=== PATIENT | female | born 1965 | race Caucasian/White ===

== ENCOUNTER 2021-07-06 18:56 | Emergency (ER) | payer MEDICARE, MEDICAID, SELFPAY ==
--- NOTE | 2021-07-06 18:58 | ECG_ITS ---
[facility] ED Test Date: 2021-07-06 Pat Name: Soheila Holley Department: Room: Gender: Female Codifier: : 1965 Requested By: Santhosh Rubio Order Number: [id number] Jareth MD: Cecily Mercedes M.D. Measurements Intervals [place] Rate: 69 P: 154 NC: 183 QRS: 135 QRSD: 101 T: 162 QT: 387 QTc: 416 Interpretive Statements ECTOPIC ATRIAL RHYTHM POSSIBLE RIGHT VENTRICULAR HYPERTROPHY [SOME/ALL OF: PROMINENT R IN V1, LATE TRANSITION, RAD, YOHANA, SSS] NONSPECIFIC ST & T-WAVE ABNORMALITY Compared to ECG 07/06/2021 19:42:23 Ectopic atrial rhythm now present T-wave abnormality now present Sinus rhythm no longer present Electronically Signed On 07-07-2021 13:56:54 CDT by Cecily Mercedes M.D. [id number]
[2021-07-06 19:01] VITALS: BP 134/80; PULSE 74; RESP 18; TEMP 36.7; O2SAT 97; BMI 34.3
--- NOTE | 2021-07-06 19:07 | XRR_ITS ---
PROCEDURE INFORMATION: Exam: XR Chest Exam date and time: 07/06/2021 7:07 PM Age: 56 years old Clinical indication: Pain; Left-sided; Additional info: Cp TECHNIQUE: Imaging protocol: XR of the chest. Views: 1 view. COMPARISON: No relevant prior studies available. FINDINGS: Lungs: Question a left perihilar mass measuring 3 cm. No focal consolidation. Pleural spaces: Unremarkable. No pleural effusion. No pneumothorax. Heart/Mediastinum: Unremarkable. No cardiomegaly. Bones/joints: Visualized osseous structures are intact. XR/XR chest 1V portable [id number] IMPRESSION: Question a 3 cm left perihilar mass. Would recommend chest CT for further evaluation.
[2021-07-06 19:25] LABS: Basophils # 0.1 10^3/uL (0.0-0.1); Basophils % 1.4 %; Eosinophils # 0.2 10^3/uL (0.0-0.8); Eosinophils % 1.9 %; Hematocrit 44.8 % (37.0-47.0); Hemoglobin 14.9 g/dL (11.5-15.3); Lymphocytes # 3.8 10^3/uL (0.8-4.8); Lymphocytes % 44.5 %; Mean Corpuscular HGB Conc 33.3 g/dL (30.0-36.0); Mean Corpuscular Hemoglobin 31.1 pg (28.0-34.0); Mean Corpuscular Volume 93.5 fL (81-99); Mean Platelet Volume 9.2 fL (7.4-10.4); Monocytes # 0.5 10^3/uL (0.2-0.9); Neutrophils # 3.95 10^3/uL (1.8-7.7); Neutrophils % 45.7 %; Nucleated Red Blood Cells % 0 %; Platelet Count 322 10^3/cmm (130-400); Red Blood Count 4.79 10^6/uL (4.1-5.3); Red Cell Distribution Width 12.6 % (12.1-15.1); White Blood Count 8.6 10^3/uL (4.0-10.0)
--- NOTE | 2021-07-06 19:25 | W.ED.CHESTPA ---
HPI - Chest Pain General: Chief Complaint: Chest Pain Stated Complaint: CHEST PAIN Time Seen by Provider: 07/06/21 19:07 Source: patient and EMS Mode of arrival: EMS Limitations: no limitations History of Present Illness: HPI narrative: 56-year-old female who is here from local detention who started having chest pain 2 hours ago. States the pressure type pain in her chest that radiates to her back. States pain is currently a 7 out of 10. Denies any shortness of breath. States it does radiate to her back as well. She does have a history of back pain. Denies any worsening improving factors. She received aspirin in route. Associated symptoms: Deny abdominal pain, dyspnea, fever(s), nausea or vomiting Review of Systems Const: Denies: fever(s), chills, body aches or change in appetite Eyes: Denies: blurry vision or eye discomfort ENMT: Denies: throat pain or dental pain Card: Reports: chest pain Resp: Denies: dyspnea GI: Denies: abdominal pain, nausea, vomiting or diarrhea : Denies: dysuria Musc: Denies: neck pain or back pain Skin/Breast: Denies: rash Neuro: Denies: headache(s) Psych: Denies: depression Jono/Lymph: Denies: easy bruising All/Imm: Denies: urticaria Physical Exam Const: COMMON NORMALS: no acute distress, patient oriented x3 and healthy appearing HENMT: COMMON NORMALS: normocephalic and atraumatic HEAD & SCALP: normocephalic and atraumatic Eye: COMMON NORMALS: Equal, round and reactive pupils present and EOMs intact bilaterally PUPIL: Yes Equal, round and reactive pupils present Neck/C-Spine: COMMON NORMALS: full ROM and supple Chest: COMMONS NORMALS: normal inspection of the chest and normal palpation of entire chest wall Resp: COMMON NORMALS: normal respiratory effort, No retractions, No use of accessory muscles and clear to auscultation bilaterally AUSCULTATION: clear to auscultation bilaterally Cardio: COMMON NORMALS: regular rate, regular rhythm and No murmurs present (Cardio) RATE: regular rate RHYTHM: regular rhythm GI: COMMON NORMALS: Normal to inspection, nondistended, normoactive bowel sounds present, Soft to palpation, non-tender and no masses PALPATION: Yes Soft to palpation OTHER: Abdominal wall hernia that is reducible and not incarcerated Extremity: COMMON NORMALS: normal to inspection and full ROM Neuro: COMMON NORMALS: patient oriented x3, moves all extremities and no focal motor deficits Psych: COMMON NORMALS: mental status grossly normal, Normal thought process present and cooperative THOUGHT PROCESS: Normal thought process present Skin: COMMON NORMALS: no rashes or lesions noted and no wounds GENERAL SKIN EXAM: no rashes or lesions noted Course Vital Signs: Vital signs: Vital Signs Temperature 98.1 F 07/06/21 19:01 Pulse Rate 64 07/06/21 22:25 Respiratory Rate 16 07/06/21 22:25 Blood Pressure 134/80 07/06/21 19:01 Pulse Oximetry 97 07/06/21 22:25 MDM - Chest Pain MDM Narrative: Medical decision making narrative: Patient presents with chest pains atypical in nature. Patient's troponins here are negative. CT did show a lung mass I informed her of this we will get her follow-up with pulmonology. She is stable for discharge back to back to detention and return if worsening. Lab Data: Labs: Lab Results 07/06/21 07/06/21 07/06/21 Range/Units 19:18 19:18 19:18 WBC 8.6 (4.0-10.0) 10^3/ uL RBC 4.79 (4.1-5.3) 10^6/u L Hgb 14.9 (11.5-15.3) g/dL Hct 44.8 (37.0-47.0) % MCV 93.5 (81-99) fL MCH 31.1 (28.0-34.0) pg MCHC 33.3 (30.0-36.0) g/dL RDW 12.6 (12.1-15.1) % Plt Count 322 (130-400) 10^3/c mm MPV 9.2 (7.4-10.4) fL Neut % (Auto) 45.7 % Lymph % (Auto) 44.5 % [place] % (Auto) 6.0 % Eos % (Auto) 1.9 % Baso % (Auto) 1.4 % Neut # (Auto) 3.95 (1.8-7.7) 10^3/u L Lymph # (Auto) 3.8 (0.8-4.8) 10^3/u L [place] # (Auto) 0.5 (0.2-0.9) 10^3/u L Eos # (Auto) 0.2 (0.0-0.8) 10^3/u L Baso # (Auto) 0.1 (0.0-0.1) 10^3/u L Nucleated RBC % (a uto) 0 % Nucleated RBCs # 0.0 /100WBC D-Dimer (0-0.59) ug/mIFE U Sodium 138 (136-145) mmol/L Potassium 4.5 (3.5-5.1) mmol/L Chloride 105 (98-107) mmol/L Carbon Dioxide 23 (22-29) mmol/L Anion Gap 14.5 (5-19) BUN 13 (6-20) mg/dL Creatinine 0.5 (0.5-0.9) mg/dL GFR Calculation 128.6 (90-130) mL/min Glucose 100 (65-115) mg/dL Calculated Osmolal ity 286 (285-295) mOsm/k g Calcium 8.5 (8.5-10.5) mg/dL Total Bilirubin 0.2 (0.15-1.2) mg/dL AST 15 (0-32) U/L ALT 11 (0-33) U/L Alkaline Phosphata se 81 (35-105) IU/L Troponin T Baselin e 8 (0-10) ng/L Troponin T 120 Min tejon (0-10) ng/L Delta Troponin T (0-10) ABS# Total Protein 5.8 L (6.6-8.7) g/dL Albumin 3.7 (3.5-5.2) g/dL Globulin 2.1 (1.3-4.6) g/dL 07/06/21 07/06/21 Range/Units 19:40 21:38 WBC (4.0-10.0) 10^3/ uL RBC (4.1-5.3) 10^6/u L Hgb (11.5-15.3) g/dL Hct (37.0-47.0) % MCV (81-99) fL MCH (28.0-34.0) pg MCHC (30.0-36.0) g/dL RDW (12.1-15.1) % Plt Count (130-400) 10^3/c mm MPV (7.4-10.4) fL Neut % (Auto) % Lymph % (Auto) % [place] % (Auto) % Eos % (Auto) % Baso % (Auto) % Neut # (Auto) (1.8-7.7) 10^3/u L Lymph # (Auto) (0.8-4.8) 10^3/u L Austin # (Auto) (0.2-0.9) 10^3/u L Eos # (Auto) (0.0-0.8) 10^3/u L Baso # (Auto) (0.0-0.1) 10^3/u L Nucleated RBC % (a uto) % Nucleated RBCs # /100WBC D-Dimer 0.58 (0-0.59) ug/mIFE U Sodium (136-145) mmol/L Potassium (3.5-5.1) mmol/L Chloride (98-107) mmol/L Carbon Dioxide (22-29) mmol/L Anion Gap (5-19) BUN (6-20) mg/dL Creatinine (0.5-0.9) mg/dL GFR Calculation (90-130) mL/min Glucose (65-115) mg/dL Calculated Osmolal ity (285-295) mOsm/k g Calcium (8.5-10.5) mg/dL Total Bilirubin (0.15-1.2) mg/dL AST (0-32) U/L ALT (0-33) U/L Alkaline Phosphata se (35-105) IU/L Troponin T Baselin e (0-10) ng/L Troponin T 120 Min tejon 8.04 (0-10) ng/L Delta Troponin T 0.04 (0-10) ABS# Total Protein (6.6-8.7) g/dL Albumin (3.5-5.2) g/dL Globulin (1.3-4.6) g/dL Imaging Data^: CT Chest: Attestation: I personally reviewed and interpreted this imaging study as follows: Radiologist's impression: [address] [address] [address] Scan Report Signed Patient: Soheila Holley Unit #: [id number] : 1965 Age/Sex: 56 / F ADM Date: 07/06/21 Loc: ER Room/Bed: Attending Dr: Ordering Provider/Ordering MD: Santhosh Rubio MD Date of Service: 07/06/21 Procedure(s): CT angio chest PE protcl [id number] Accession Number(s): [id number] Report Number: [id number] PROCEDURE INFORMATION: Exam: CTA Chest With Contrast Exam date and time: 07/06/2021 7:59 PM Age: 56 years old Clinical indication: Shortness of breath; Sternal or substernal pain; Additional info: Cp TECHNIQUE: Imaging protocol: Computed tomographic angiography of the chest with contrast. 3D rendering (Not supervised by radiologist): MIP and/or 3D reconstructed images were created by the technologist. Radiation optimization: All CT scans at this facility use at least one of these dose optimization techniques: automated exposure control; mA and/or kV adjustment per patient size (includes targeted exams where dose is matched to clinical indication); or iterative reconstruction. Contrast material: OMNI 350; Contrast volume: 62 ml; Contrast route: INTRAVENOUS (IV); COMPARISON: CR (CHEST, ) 07/06/2021 7:16 PM RADIATION DOSE METRICS: Total DLP (mGy-cm): 599.35 FINDINGS: Pulmonary arteries: Normal. No pulmonary emboli. Aorta: Unremarkable. No aortic aneurysm. No aortic dissection. Lungs: There is a 2.0 x 2.1 x 2.8 cm left perihilar mass with lobular border series 601, image 30 and series 2, image 212. Pleural spaces: Unremarkable. No pneumothorax. No pleural effusion. Heart: Unremarkable. No cardiomegaly. No pericardial effusion. Lymph nodes: Unremarkable. No enlarged lymph nodes. Bones/joints: No acute fracture. No aggressive osseous lesion. Soft tissues: Unremarkable. CT/CT angio chest PE protcl [id number] IMPRESSION: 1. Negative for pulmonary embolism. 2. Confirmation of a 2.8 cm left perihilar mass. Findings raise concern for malignancy. This could be further evaluated with PET. Radiation Dose CTDIVOL = (mGy): DLP = 599.35 (mGy-cm) Dictated By: Jeffrey Muniz DO Signed By: Jeffrey Muniz DO Signed Date/Time: 07/06/212047 DD/ 46 EKG Data^: EKG 1: Attestation: I personally reviewed and interpreted this EKG as follows: EKG interpretation date: 07/06/21 EKG interpretation time: 19:42 Interpretation: nsr hr [address] or t wave abnormalities qrs 82 [id number] EKG 2: Attestation: I personally reviewed and interpreted this EKG as follows: EKG interpretation date: 07/06/21 EKG interpretation time: 21:03 Interpretation: nsr hr [address] or t wave abnormalities qrs 10 qtc 406 Discharge Plan Discharge Patient Disposition: Home Clinical Impression: Lung mass Chest pain Qualifiers: Chest pain type: unspecified Qualified Code(s): R07.9 - Chest pain, unspecified Condition: Stable Prescriptions: No Action tizanidine 4 mg tablet 4 mg PO DAILY RF: 0 albuterol sulfate 1.25 mg/3 mL solution for nebulization 1.25 mg inhalation .COMPELX RF: 0 lisinopril 20 mg tablet 20 mg PO DAILY RF: 0 hydrocodone-acetaminophen 7.5-325 mg tablet See Rx Instructions .ROUTE .COMPLEX RF: 0 albuterol sulfate 90 mcg/actuation HFA aerosol inhaler See Rx Instructions .ROUTE .COMPLEX RF: 0 Pain Relief Cream 4-30-10 % Cream 1 applic TOPICAL DAILY PRN (Reason: Pain) RF: 0 Discharge Orders: Discharge ED (Routine); Ordered 07/06/21 Ordered By: Santhosh Rubio Discharge Diet: Advance as tolerated Discharge Activity: Resume usual activity Patient Instructions: Chest Pain (ED) Coding Level of Care Code ED Microbiological Laboratory Technician for Chg Fwd Exam Comprehensive
[2021-07-06 19:35] VITALS: RESP 18
[2021-07-06] MEDS: morphine 4 mg/mL SDV 1 mL IVP (19:35)
[2021-07-06] MEDS: ondansetron 2 mg/ML SDV 2 mL 4 MG IVP (19:35)
[2021-07-06 19:54] LABS: Alanine Aminotransferase 11 U/L (0-33); Albumin Level 3.7 g/dL (3.5-5.2); Alkaline Phosphatase 81 IU/L (35-105); Blood Urea Nitrogen 13 mg/dL (6-20); Calcium 8.5 mg/dL (8.5-10.5); Carbon Dioxide 23 mmol/L (22-29); Chloride 105 mmol/L (98-107); Globulin 2.1 g/dL (1.3-4.6); Glomerular Filtration Rate 128.6 mL/min (90-130); Glucose 100 mg/dL (65-115); Osmolality Calculated 286 mOsm/kg (285-295); Sodium 138 mmol/L (136-145); Total Bilirubin 0.2 mg/dL (0.15-1.2); Total Protein 5.8 g/dL (6.6-8.7)
[2021-07-06 19:56] LABS: Anion Gap 14.5 (5-19); Aspartate Amino Transferase 15 U/L (0-32); Potassium 4.5 mmol/L (3.5-5.1)
--- NOTE | 2021-07-06 19:59 | CTR_ITS ---
PROCEDURE INFORMATION: Exam: CTA Chest With Contrast Exam date and time: 07/06/2021 7:59 PM Age: 56 years old Clinical indication: Shortness of breath; Sternal or substernal pain; Additional info: Cp TECHNIQUE: Imaging protocol: Computed tomographic angiography of the chest with contrast. 3D rendering (Not supervised by radiologist): MIP and/or 3D reconstructed images were created by the technologist. Radiation optimization: All CT scans at this facility use at least one of these dose optimization techniques: automated exposure control; mA and/or kV adjustment per patient size (includes targeted exams where dose is matched to clinical indication); or iterative reconstruction. Contrast material: OMNI 350; Contrast volume: 62 ml; Contrast route: INTRAVENOUS (IV); COMPARISON: CR (CHEST, ) 07/06/2021 7:16 PM RADIATION DOSE METRICS: Total DLP (mGy-cm): 599.35 FINDINGS: Pulmonary arteries: Normal. No pulmonary emboli. Aorta: Unremarkable. No aortic aneurysm. No aortic dissection. Lungs: There is a 2.0 x 2.1 x 2.8 cm left perihilar mass with lobular border series 601, image 30 and series 2, image 212. Pleural spaces: Unremarkable. No pneumothorax. No pleural effusion. Heart: Unremarkable. No cardiomegaly. No pericardial effusion. Lymph nodes: Unremarkable. No enlarged lymph nodes. Bones/joints: No acute fracture. No aggressive osseous lesion. Soft tissues: Unremarkable. CT/CT angio chest PE protcl [id number] IMPRESSION: 1. Negative for pulmonary embolism. 2. Confirmation of a 2.8 cm left perihilar mass. Findings raise concern for malignancy. This could be further evaluated with PET. Radiation Dose CTDIVOL = (mGy): DLP = 599.35 (mGy-cm)
[2021-07-06 20:00] LABS: Troponin(5th) Baseline 8 ng/L (0-10)
[2021-07-06 20:07] LABS: D Dimer 0.58 ug/mIFEU (0-0.59)
[2021-07-06] MEDS: iohexol 350 mg/mL 100 mL Btl IV (20:16)
--- NOTE | 2021-07-06 20:58 | ECG_ITS ---
[facility] Test Date: 2021-07-06 Pat Name: Soheila Holley Department: Room: Gender: Female Hop Farmer: : 1965 Requested By: Santhosh Rubio Order Number: [id number] Jareth MD: Jaylen Briscoe M.D. Measurements Intervals [place] Rate: 72 P: 71 OR: 183 QRS: 78 QRSD: 82 T: 87 QT: 364 QTc: 401 Interpretive Statements SINUS RHYTHM No previous ECG available for comparison Electronically Signed On 07-06-2021 23:05:06 CDT by Jaylen Briscoe M.D. [id number]
[2021-07-06 22:00] LABS: Troponin 5 2HR 8.04 ng/L (0-10); Troponin 5 2HR Delta 0.04 ABS# (0-10)
[2021-07-06] MEDS: HYDROcodone-acetaminophen 5-325 mg Tablet 1 TAB PO (22:10)
[2021-07-06 22:25] VITALS: PULSE 64; RESP 16; O2SAT 97
--- NOTE | 2021-07-07 09:43 | DCPLANNER ---
plant culture manager had message to schedule a follow up appointment for patient with [facility], pulmonology. plant culture manager called [facility], spoke with Deepa, gave clinic patients information. A follow up appointment was scheduled for patient for Saturday, July 10, 2021 at 2:[address] Jones. Patient is in the [facility], machine adjuster leader case trim called [facility], spoke with sql data architect, gave him the appointment information.
--- NOTE | 2021-07-12 07:43 | DCPLANNER ---
Patient had a follow up appointment scheduled for 07.10.21 with [facility], this appointment was rescheduled to 07.20.21.
--- NOTE | 2021-07-21 15:00 | DCPLANNER ---
Patient had a follow up appointment scheduled for 07.10.21 with [facility] - appointment was rescheduled.
== END 2021-07-06 22:25 | disposition home or self-care (01) ==
PROVIDERS: Emergency Provider Emergency Medicine
DX: R07.9 Chest pain, unspecified (principal); R91.8 Other nonspecific abnormal finding of lung field
CPT/HCPCS: 36415; 71045; 71275; 80053; 84484; 85025; 85378; 93005; 96374; 96375; 99284; J2270; J2405; Q9967

== ENCOUNTER → 2024-09-21 15:38 | Outpatient (BNVA) | payer MEDICARE, MEDICAID, SELFPAY | PROVIDERS: PCP Nurse Practitioner Family; Visit Provider Family Medicine | DX: N39.0 Urinary tract infection, site not specified (principal); E55.9 Vitamin D deficiency, unspecified; I10 Essential (primary) hypertension; M79.18 Myalgia, other site; J43.9 Emphysema, unspecified; R79.89 Other specified abnormal findings of blood chemistry; M25.50 Pain in unspecified joint; J20.9 Acute bronchitis, unspecified | CPT/HCPCS: 80053; 80061; 81000; 81003; 82306; 82550; 82607; 82728; 82746; 83540; 84443; 85025; 86038; 86200; 86431 ==